=== PATIENT | female | born 1940 | race Caucasian/White ===

== ENCOUNTER 2018-02-15 00:35 | Inpatient (IN) | payer BC ==
[2018-02-15 01:35] VITALS: BP 129/82
[2018-02-15] MEDS ORDERED: Albuterol/Ipratropium Neb 3 ML AERS HHN PRN (02:48)
[2018-02-15] MEDS ORDERED: Maalox 30 mL Cup PO PRN (02:48)
[2018-02-15] MEDS: Lactobacillus Rhamnosus GG 15 Billion CFU CAP.SPRINK PO SCH ×2 (08:56→17:34)
[2018-02-15] MEDS: Aspirin 81mg Chewable Tab PO SCH (08:56)
[2018-02-15] MEDS: OLANZapine 5 mg Oral Disintegrating Tab PO SCH ×2 (08:56→17:36)
[2018-02-15] MEDS: Atorvastatin Calcium 10 MG TAB PO SCH (08:57)
--- NOTE | 2018-02-15 16:39 | History & Physical ---
ADMIT DATE: 02/15/2018 INTERNAL MEDICINE CONSULTATION HISTORY OF PRESENT ILLNESS: The patient is a 77-year-old female, past medical history significant for hypertension, COPD, hyperlipidemia, peptic ulcer disease, gastritis, arthritis, coronary artery disease, paroxysmal atrial fibrillation, congestive heart failure, and history of carcinoma of breast. SOCIAL HISTORY: No history of smoking, alcohol abuse. FAMILY HISTORY: Not available. OBSTETRIC HISTORY: P2 +0, menses are postmenopausal. REVIEW OF SYSTEMS: The patient is a poor historian due to advanced dementia. No chest pain, occasional cough. No significant shortness of breath, no nausea, no vomiting. The patient has resting tremors. PHYSICAL EXAMINATION: GENERAL: Average female, in no obvious respiratory distress. VITAL SIGNS: Include a blood pressure 140/80, heart rate 80, respiration rate of 18. SKIN: Show no obvious cellulitis. HEENT: Normal conjunctivae. NECK: Supple. LUNGS: Show occasional rhonchi, occasional crepitation, no bronchial breathing. HEART: First present. ABDOMEN: Soft, bowel sounds present. EXTREMITIES: Show arthritis. NEUROLOGIC: The patient has resting tremor and advanced dementia. ADMITTING DIAGNOSES: Include congestive heart failure., chronic obstructive pulmonary disease, hypertension, paroxysmal atrial fibrillation, hyperlipidemia, peptic ulcer disease, gastritis, arthritis, osteoporosis, and history of carcinoma of breast. CURRENT MEDICATIONS: Include Maalox, DuoNeb, baby aspirin, Lipitor, Catapres, Pepcid, Apresoline, and Lopressor. Rest of medicine as per psychiatrist. JOB# [id number]
[2018-02-15] MEDS ORDERED: OLANZapine 5 mg Oral Disintegrating Tab PO SCH (21:00)
--- NOTE | 2018-02-16 04:05 | Psychosocial Evaluation ---
DATE OF SERVICE: 02/15/2018 IDENTIFYING DATA: The patient is a 77-year-old woman admitted on a 5150 from [facility] for being gravely disabled. CHIEF COMPLAINT: "I do not know." HISTORY OF PRESENT ILLNESS: This is the first psychiatric hospitalization to [facility] for this patient who has been diagnosed to have schizophrenia, chronic paranoid type and is reported to be noncompliant with the medication and has been screaming and yelling and responding to the internal stimuli. The patient was taken to the [facility] after having a stroke and the patient has not been able to care for self and the patient has been referred over here for further care after she was medically cleared over there. At the time of the hospitalization, the patient is reported to have been on lithium as well as the Zyprexa and at this time the patient is very groggy and is not able to provide the information. PAST PSYCHIATRIC HISTORY: Details are not known, but long history of mental illness. PHYSICAL EXAMINATION: Requested to be done by Dr. Harvey. SUBSTANCE ABUSE HISTORY: None. PHYSICAL OR SEXUAL ABUSE HISTORY: None. LEGAL PROBLEMS: None at this time. STRENGTH AND ASSETS: The patient is a 77-year-old woman, moderately obese, superficially cooperative. Eye contact is poor. Mood is noted to be irritable. Affect is constricted. The patient is reported to have been screaming and yelling and has been having difficult time to cope with the stress. The patient at this time is not providing much of information, but is reported to have been out of control and hence has been referred over here for stabilization. The patient has a short as well as long-term memory deficits, but the patient is alert and awake. The patient is not able to recall the three digits that are told to her after 5 minutes. DIAGNOSTIC IMPRESSION: AXIS I: Schizophrenia, chronic paranoid type; rule out schizoaffective disorder. AXIS II: None. AXIS III: As per Dr. Harvey. IMMEDIATE TREATMENT PLAN: The patient is going to be observed on inpatient unit, provided with supportive psychotherapy. The patient is going to be closely monitored. Once stabilized, the patient is going to be discharged to [facility] to be followed up on an outpatient basis. JOB# [id number]
[2018-02-16] MEDS: Atorvastatin Calcium 10 MG TAB PO SCH (08:25)
[2018-02-16] MEDS: Aspirin 81mg Chewable Tab PO SCH (08:25)
[2018-02-16] MEDS: Lactobacillus Rhamnosus GG 15 Billion CFU CAP.SPRINK PO SCH ×2 (08:25→16:17)
--- NOTE | 2018-02-16 17:13 | Progress Notes ---
DATE: 02/16/2018 SUBJECTIVE: Staff was spoken to. The patient is interviewed. Mood is noted to be irritable. Affect is constricted. Insight and judgment at this time are noted to be still impaired. Impulse control is noted to be poor. The patient is currently on 15 mg of the olanzapine and has been able to tolerate the medication. The patient is also on the lithium 300 mg twice a day. The patient continues to be very drowsy and has been sleeping most of the time in the GD chair and hence I have decided to decrease the dose on the Zyprexa to 10 mg at bedtime and continue the lithium and follow the patient up with the supportive therapy. The patient at this time has not been able to be discharged to be lower level of care in view of her psychosis and impulsivity. PLAN: To closely monitor the patient for any side effects and follow the patient. JOB# [id number]
[2018-02-16] MEDS: OLANZapine 5 mg Oral Disintegrating Tab PO SCH (21:24)
[2018-02-17] MEDS: Aspirin 81mg Chewable Tab PO SCH (09:10)
[2018-02-17] MEDS: Atorvastatin Calcium 10 MG TAB PO SCH (09:11)
[2018-02-17] MEDS: Lactobacillus Rhamnosus GG 15 Billion CFU CAP.SPRINK PO SCH ×2 (09:11→17:12)
[2018-02-17] MEDS: cloNIDine 0.2 mg/24 hr Tdm TD SCH (10:05)
[2018-02-17] MEDS: OLANZapine 5 mg Oral Disintegrating Tab PO SCH (20:31)
--- NOTE | 2018-02-18 03:03 | Progress Notes ---
DATE: 02/17/2018 SUBJECTIVE: Staff was spoken to. The patient is interviewed. Mood is noted to be irritable. Affect is constricted. The patient has paranoid delusions. The patient is currently on the Zyprexa and has been able to tolerate the medications. No side effects to the medications are noted. ASSESSMENT AND PLAN: The patient has been compliant with the medication because the patient has been too drowsy. The dose of the Zyprexa is gradually decreased at this time. The patient is currently on olanzapine 10 mg at bedtime and lithium 300 mg twice a day. Aggressive behavior is being monitored. JOB# [id number]
[2018-02-18] MEDS ORDERED: OLANZapine 5 mg Oral Disintegrating Tab PO SCH ×2 (10:03→21:00)
[2018-02-18] MEDS: Atorvastatin Calcium 10 MG TAB PO SCH (11:02)
[2018-02-18] MEDS: Aspirin 81mg Chewable Tab PO SCH (11:02)
[2018-02-18] MEDS: Lactobacillus Rhamnosus GG 15 Billion CFU CAP.SPRINK PO SCH ×2 (11:02→17:02)
--- NOTE | 2018-02-18 16:22 | Progress Notes ---
DATE: 02/18/2018 SUBJECTIVE: Staff was spoken to. The patient is interviewed. Mood is noted to be irritable. Affect is constricted. The patient is drowsy this morning. The patient was initially on a very high dose of the Zyprexa. I am slowly cutting the medication down. Currently, the patient is on 10 mg, I am planning to bring it down to 5 mg. The patient is very irritable and angry and agitated behavior is a major concern. Plan to continue patient with the supportive therapy. I encouraged the patient to verbalize the concerns rather than to act out. ASSESSMENT AND PLAN: The patient is going to be closely monitored. I encouraged to participate in the groups and verbalize the concerns rather than to act out. JOB# [id number]
--- NOTE | 2018-02-19 01:51 | Consultation ---
DATE OF CONSULTATION: 02/17/2018 REFERRING PHYSICIAN: Geo Sky M.D. TYPE OF CONSULTATION: Psychology. HISTORY OF PRESENT ILLNESS: The patient is a 77-year-old female, who is being admitted on 5150 hold from [facility]. The following is by review of the medical record and by patient self report. Upon interview, the patient does not know why she is in the hospital. The patient has a history of schizophrenia, chronic paranoid type. Staff at her facility states and reports that she had been screaming and yelling and responding to internal stimuli. Record review from [facility] indicates that the patient had been noncompliant with the medication and has been referred here for stabilization. This patient was medically cleared at [facility]. The patient denied any suicidal ideation, plan or intention at the time of this clinical interview. PAST MEDICAL HISTORY: Please see history and physical by Dr. Harvey. PAST PSYCHIATRIC HISTORY: The patient has a long history of mental illness. There is indication in the record that she has a history of schizophrenia. Details are unknown to this check writer at the time of the clinical interview and are unavailable. SUBSTANCE ABUSE HISTORY: None reported. PSYCHOSOCIAL HISTORY: The patient did not answer these questions regarding occupational or educational history or moravian affiliation. The patient did not answer questions about physical or sexual abuse or legal issues. The patient did not answer questions about family history or family relationships with respect to support and caregiving. MENTAL STATUS EXAMINATION: The patient appears to be her stated age. The patient's attitude is superficially cooperative. Eye contact is poor. Speech is loud. The patient is yelling and having difficulty responding to the clinical questions. Mood is irritable and angry. Affect is constricted. The patient is not providing much information due to her selective response to the clinical questions. The patient did not answer questions about suicidal ideation, plan or intention. The patient did not answer questions about auditory or visual hallucinations or delusions. The patient did not participate in the memory evaluation. Impulse control is inadequate. The patient is alert and oriented to self only. The patient did not participate in the interpretation of proverbs. Insight is impaired. Judgment is impaired. DIAGNOSTIC IMPRESSION: AXIS I: 1. History of schizophrenia, chronic paranoid type. 2. Rule out schizoaffective disorder. 3. Provisional diagnosis of dementia with behavioral disturbance. AXIS II: Deferred. AXIS III: As per Dr. Harvey. PLAN: The patient has been seen by Dr. Sky for psychiatric evaluation and for the management of the patient's psychotropic medications. We will provide supportive psychotherapy. We will provide reality testing, reality orientation, reality differentiation and reality integration. We will provide coping strategies for phase of life issues as well as for chronic severe mental illness. We will provide a simple de-escalation skill for the patient to verbalize her concerns versus acting out. We will provide motivational enhancement for the patient to become compliant and stay compliant with her medication and with all other aspects of her care and treatment plan. Thank you, Dr. Sky for this consult and the opportunity to participate with you in this patient's care. JOB# [id number] [email or web address]
[2018-02-19] MEDS: Aspirin 81mg Chewable Tab PO SCH (10:28)
[2018-02-19] MEDS: Lactobacillus Rhamnosus GG 15 Billion CFU CAP.SPRINK PO SCH ×2 (10:29→16:34)
[2018-02-19] MEDS: Atorvastatin Calcium 10 MG TAB PO SCH (10:29)
[2018-02-19] MEDS ORDERED: OLANZapine 10 mg Oral Disintegrating Tab PO SCH (17:00)
--- NOTE | 2018-02-20 01:15 | Progress Notes ---
DATE: 02/19/2018 PSYCHIATRIC PROGRESS NOTE SUBJECTIVE: Staff was spoken to. The patient is interviewed. Mood is noted to be irritable. Affect is constricted. Insight and judgment are noted to be still impaired. Impulse control seems to be limited. The patient has been very groggy, is screaming and yelling. The patient's Zyprexa has been brought down all the way to 5 mg at bedtime, but still the patient is having difficult time to cope with the stress. No side effects to the medications are noted at this time and it is decided to change the dose on the Zyprexa to 2.5 mg twice a day and follow the patient with supportive therapy. The patient continues to be paranoid and confused, not making much sense, and is not ready to be discharged to a lower level of care yet. JOB# [id number]
[2018-02-20] MEDS: Aspirin 81mg Chewable Tab PO SCH (17:03)
[2018-02-20] MEDS: Atorvastatin Calcium 10 MG TAB PO SCH (17:03)
[2018-02-20] MEDS: Lactobacillus Rhamnosus GG 15 Billion CFU CAP.SPRINK PO SCH (17:04)
[2018-02-21] MEDS: Lactobacillus Rhamnosus GG 15 Billion CFU CAP.SPRINK PO SCH ×2 (08:59→19:04)
[2018-02-21] MEDS: Aspirin 81mg Chewable Tab PO SCH (08:59)
[2018-02-21] MEDS: Atorvastatin Calcium 10 MG TAB PO SCH (08:59)
--- NOTE | 2018-02-21 15:05 | Progress Notes ---
DATE: 02/20/2018 SUBJECTIVE: Staff was spoken to. The patient is interviewed. Mood is noted to be irritable. Affect is constricted. The patient has been on a high dose of olanzapine at the time of the admission and has been slowly cut down. The patient's coping skills at this time are noted to be poor. The patient has been still very drowsy and olanzapine is being decreased to 2.5 mg at this time. No side effects to the medications are noted. ASSESSMENT: The patient is still psychotic, screaming and yelling. PLAN: To continue the patient with the current medications and follow. JOB# [id number]
--- NOTE | 2018-02-22 04:30 | Progress Notes ---
DATE: 02/21/2018 SUBJECTIVE: Staff was spoken to. The patient is interviewed. Mood is noted to be irritable. Affect is constricted. Coping skills at this time are noted to be poor. The patient is screaming and yelling at the top of her lungs. The family has been visiting the patient. She has been doing pretty well, but now she is screaming and yelling. No side effects to the medications are noticed at this time. The patient is currently on 2.5 mg of Zyprexa and is able to tolerate the medication. ASSESSMENT: The patient is still psychotic and agitated. PLAN: To continue the patient with the current medications and follow up. [facility]# [id number]
[2018-02-22] MEDS: Atorvastatin Calcium 10 MG TAB PO SCH ×2 (08:37→09:00)
[2018-02-22] MEDS: Lactobacillus Rhamnosus GG 15 Billion CFU CAP.SPRINK PO SCH ×3 (08:38→17:06)
[2018-02-22] MEDS: Aspirin 81mg Chewable Tab PO SCH ×2 (08:38→09:00)
--- NOTE | 2018-02-23 03:02 | Progress Notes ---
DATE: 02/22/2018 SUBJECTIVE: Staff was spoken to. The patient is interviewed. Mood is noted to be irritable. Affect is constricted. The patient is screaming and yelling at this time. The patient's family has been met yesterday, they want the patient to go to a [facility]iary facility for the rehab. The patient has paranoia, but the patient's verbalizations are getting a little bit better compared to the time that she came in. No aggressive behavior is reported today. ASSESSMENT: The patient's psychosis is resolving. PLAN: To continue the patient with the current medications and follow up. JOB# [id number]
[2018-02-23] MEDS: Lactobacillus Rhamnosus GG 15 Billion CFU CAP.SPRINK PO SCH ×2 (08:47→18:22)
[2018-02-23] MEDS: Aspirin 81mg Chewable Tab PO SCH (08:47)
[2018-02-23] MEDS: Atorvastatin Calcium 10 MG TAB PO SCH (08:47)
--- NOTE | 2018-02-24 02:55 | Progress Notes ---
DATE: 02/23/2018 SUBJECTIVE: Staff was spoken to. The patient is interviewed. Mood is noted to be less irritable. The patient had to be given a dose of Zyprexa medication this morning because of her agitated behavior. No side effects to the medications are noted. The patient at this time is sleeping and the patient has a problem with speech and that is what making her to be frustrated when she has to explain. ASSESSMENT: The patient is still paranoid. PLAN: To continue the patient with the supportive therapy. I encouraged the patient to verbalize the concerns rather than to act out. JOB# [id number]
[2018-02-24] MEDS: Atorvastatin Calcium 10 MG TAB PO SCH (09:03)
[2018-02-24] MEDS: Aspirin 81mg Chewable Tab PO SCH (09:03)
[2018-02-24] MEDS: cloNIDine 0.2 mg/24 hr Tdm TD SCH (09:03)
[2018-02-24] MEDS: Lactobacillus Rhamnosus GG 15 Billion CFU CAP.SPRINK PO SCH ×2 (09:04→17:29)
--- NOTE | 2018-02-25 00:32 | Progress Notes ---
DATE: 02/24/2018 TIME PATIENT SEEN: Staff was spoken to. The patient is interviewed. Mood is noted to be irritable. Affect is constricted. The patient is still screaming and yelling, but the aggressive behavior seems to be coming under control. She is currently on a low dose of the Zyprexa and has been able to tolerate the medication. No side effects to the Zyprexa are noted at this time. ASSESSMENT: The patient is still paranoid, but the aggressive behavior is coming under control. PLAN: To continue the patient with the supportive therapy and follow up. JOB# [id number]
[2018-02-25] MEDS: Lactobacillus Rhamnosus GG 15 Billion CFU CAP.SPRINK PO SCH ×4 (09:34→17:47)
[2018-02-25] MEDS: Atorvastatin Calcium 10 MG TAB PO SCH ×2 (09:34→09:54)
[2018-02-25] MEDS: Aspirin 81mg Chewable Tab PO SCH ×2 (09:38→09:54)
--- NOTE | 2018-02-25 18:46 | Progress Notes ---
DATE: 02/25/2018 SUBJECTIVE: Staff was spoken to. The patient is interviewed. Mood is noted to be depressed today. Affect is constricted. The patient is drowsy. The patient's blood pressure has been checked and it is coming at 138/89 and a blood pressure medication has been held. No side effects to the medications are noted. The patient is reported to have been wanting to go to the bathroom a little bit more and the patient is reported to have a rash in the genital area. ASSESSMENT: The patient is still paranoid and demented. PLAN: To continue the patient with the supportive therapy and encouraged the patient to verbalized the concerns . JOB# [id number]
[2018-02-26] MEDS: Aspirin 81mg Chewable Tab PO SCH (12:42)
[2018-02-26] MEDS: Lactobacillus Rhamnosus GG 15 Billion CFU CAP.SPRINK PO SCH (12:42)
[2018-02-26] MEDS: Atorvastatin Calcium 10 MG TAB PO SCH (12:42)
[2018-02-26 14:47] LABS: % EOSINOPHILS 4.2 % (0.0-5.0); % LYMPHOCYTES 6.9 % (20.0-50.0); % MONOCYTES 4.9 % (2.0-10.0); EOSINOPHILE ABSOLUTE 0.4 Th/cmm (0.1-0.4); HEMATOCRIT 43.1 % (41.0-60); HEMOGLOBIN 14.7 gm/dL (12-16); LYMPHOCYTE ABSOLUTE 0.7 Th/cmm (1.5-3.0); MEAN CELL VOLUME 90.5 fl (81-100); MEAN CORPUSCULAR HEMOGLOBIN 30.9 pg (27.0-31.0); MEAN CORPUSCULAR HGB CONC 34.1 pg (28.0-36.0); MEAN PLATELET VOLUME 8.3 fl; MONOCYTE ABSOLUTE 0.5 Th/cmm (0.3-1.0); NEUTROPHILE ABSOLUTE 8.4 Th/cmm (1.8-8.0); PLATELET COUNT 349 Th/cmm (150-400); RED BLOOD COUNT 4.77 Mil/cmm (3.80-5.20); RED CELL DISTRIBUTION WIDTH 13.9 % (11.5-20.0)
--- NOTE | 2018-02-26 22:07 | Progress Notes ---
DATE: 02/26/2018 PSYCHIATRIC PROGRESS NOTE SUBJECTIVE: Staff was spoken to. The patient is interviewed. Mood is noted to be irritable. Affect is constricted. Insight and judgment are noted to be still impaired. Impulse control is noted to be limited. The patient has paranoia, but denies any command hallucinations. The patient is still confused. The patient has been drowsy this morning and hence the medication was kept on hold. The patient is only on 2.5 mg of the Zyprexa. The patient is poorly motivated. The patient's family is very much involved and they are trying to look for place that is willing to take the patient for rehabilitation. JOB# [id number]
[2018-02-27] MEDS ORDERED: cloNIDine 0.2 mg/24 hr Tdm TD SCH ×2 (06:45→10:00)
[2018-02-27] MEDS: Lactobacillus Rhamnosus GG 15 Billion CFU CAP.SPRINK PO SCH ×2 (12:44→17:00)
[2018-02-27] MEDS: Aspirin 81mg Chewable Tab PO SCH (12:45)
[2018-02-27] MEDS: Atorvastatin Calcium 10 MG TAB PO SCH (12:45)
--- NOTE | 2018-02-28 05:59 | Progress Notes ---
DATE: 02/27/2018 SUBJECTIVE: Staff was spoken to. The patient is interviewed. Mood is noted to be less irritable. Affect is constricted. The patient is isolative and withdrawn today. The patient has not been screaming and yelling, but the patient has poor short-term as well as long-term memory deficits. No major behavioral problems are noted. The patient is looking for placement in a place where she can get some physical rehabilitation. ASSESSMENT: The patient is stabilizing. PLAN: Continue the patient with the supportive therapy and await for placement. JOB# [id number]
[2018-02-28] MEDS: Atorvastatin Calcium 10 MG TAB PO SCH (09:51)
[2018-02-28] MEDS: Aspirin 81mg Chewable Tab PO SCH (09:51)
[2018-02-28] MEDS: Lactobacillus Rhamnosus GG 15 Billion CFU CAP.SPRINK PO SCH (09:51)
[2018-02-28 10:57] LABS: URINE MICROSCOPIC INDICATED? YES; URINE SOURCE MIDSTREAM
[2018-02-28 11:16] LABS: URINE BILIRUBIN SMALL (NEGATIVE); URINE BLOOD TRACE (NEGATIVE); URINE GLUCOSE (UA) NEGATIVE (NEGATIVE); URINE KETONE TRACE mg/dL (NEGATIVE); URINE LEUKOCYTE ESTERASE MODERATE (NEGATIVE); URINE NITRATE NEGATIVE (NEGATIVE); URINE PROTEIN TRACE mg/dL (NEGATIVE)
[2018-02-28 11:20] LABS: URINE CLARITY HAZY (CLEAR); URINE COLOR YELLOW
[2018-02-28 11:31] LABS: URINE BACTERIA MODERATE /hpf (NONE SEEN); URINE EPITHELIAL CELLS MODERATE /lpf (FEW); URINE YEAST FEW /hpf (NONE SEEN)
--- NOTE | 2018-02-28 18:54 | Progress Notes ---
DATE: 02/28/2018 SUBJECTIVE: Staff was spoken to. The patient is interviewed. Mood is noted to be less irritable. Affect is appropriate. The patient is able to verbalize the concerns. Insight and judgment at this time are noted to be improving. Impulse control seems to be fair. No side effects to the medications are noted. The patient's coping skills are noted to be improving. The patient has been able to verbalize the concerns rather than to act out. No side effects to the medications are noted at this time as the patient is awaiting placement at this time and no major behavioral problems are noted. ASSESSMENT: The patient is stabilizing and awaiting placement. PLAN: To continue the patient with the supportive therapy and followup. [facility]# [id number]
[2018-03-01] MEDS: Aspirin 81mg Chewable Tab PO SCH (09:52)
[2018-03-01] MEDS: Atorvastatin Calcium 10 MG TAB PO SCH (09:52)
[2018-03-01] MEDS: Lactobacillus Rhamnosus GG 15 Billion CFU CAP.SPRINK PO SCH ×2 (09:53→17:18)
--- NOTE | 2018-03-02 01:09 | Progress Notes ---
DATE: 03/01/2018 SUBJECTIVE: Staff was spoken to. The patient is interviewed. Mood is noted to be anxious. Affect is appropriate. The patient's insight and judgment are improving. Impulse control seemed to be fair. Coping skills are also noted to be fair. No side effects to the medications are noted. The patient has been able to verbalize the concerns rather than to act out. The patient at this time is awaiting placement. ASSESSMENT: The patient is stabilizing. PLAN: To continue the patient with the supportive therapy and I encourage the patient to verbalize the concerns. The patient is only on 2.5 mg of the Zyprexa and has been able to tolerate the medication. JOB# [id number]
[2018-03-02] MEDS: Aspirin 81mg Chewable Tab PO SCH (08:48)
[2018-03-02] MEDS: Lactobacillus Rhamnosus GG 15 Billion CFU CAP.SPRINK PO SCH ×2 (08:48→17:39)
[2018-03-02] MEDS: Atorvastatin Calcium 10 MG TAB PO SCH (08:49)
--- NOTE | 2018-03-03 05:08 | Progress Notes ---
DATE: 03/02/2018 SUBJECTIVE: Staff was spoken to. The patient is interviewed. Mood is noted to be less irritable. Affect is appropriate. The patient's insight and judgment are noted to be improving. Impulse control seems to be fair. The patient denies any auditory hallucinations, but the patient has paranoia, no command hallucinations are noted today. No visual hallucinations are reported. The patient is complying with the treatment and waiting for placement. ASSESSMENT: The patient is stabilizing. PLAN: To continue the patient with the supportive therapy and await for placement. JOB# [id number]
[2018-03-03] MEDS: Atorvastatin Calcium 10 MG TAB PO SCH ×2 (09:37→09:48)
[2018-03-03] MEDS: Lactobacillus Rhamnosus GG 15 Billion CFU CAP.SPRINK PO SCH ×2 (09:37→09:48)
[2018-03-03] MEDS: Aspirin 81mg Chewable Tab PO SCH ×2 (09:37→09:48)
--- NOTE | 2018-03-03 22:26 | Discharge Summary ---
DATE OF DISCHARGE: 03/03/2018 IDENTIFYING DATA: The patient is a 77-year-old woman admitted on a 5150 from [facility] for being gravely disabled. CHIEF COMPLAINT: "I do not know." DIAGNOSES AT THE TIME OF ADMISSION: AXIS I: Schizophrenia, chronic paranoid type or schizoaffective disorder. AXIS II: None. AXIS III: As per Dr. Harvey. HISTORY OF PRESENT ILLNESS: Please refer to the 02/15/2018 dictation on me. Physical examination at the time was done by Dr. Harvey and is noted to be significant for hypertension, COPD, hyperlipidemia, peptic ulcer disease, arthritis, coronary artery disease, history of carcinoma of the breast, and recent CVA. HOSPITAL COURSE AND RESPONSE TO TREATMENT: The patient has been observed on inpatient unit, provided with supportive psychotherapy. The patient has been closely monitored. The patient was initially in a very high dose of the Zyprexa and it has been gradually decreased and the patient has been finally placed on 2.5 mg of the Zyprexa at night time. In view of her memory problems, the patient has been placed on the Namenda and Aricept. For mood swings, lithium has been given in the beginning and it was given at 300 mg twice a day. With these medications, the patient was observed and was noted to be doing fairly well. The impulse control came under control and the patient was finally discharged with recommendation that she is going to be seeking treatment on an outpatient basis. MENTAL STATUS EXAMINATION: At the time of discharge, the patient's mood is noted to be less irritable. Affect is appropriate. Insight and judgment are noted to be improving. Impulse control seems to be fair. The patient has short-term memory deficits. Long-term memory also noted to be fair at times, but the patient's screaming and yelling has come down and the patient has been able to verbalize the concerns. Family is more interested in the physical therapy of the patient was finally discharged. CONDITION: At the time of discharge is noted to be stable. DIAGNOSES AT THE TIME OF DISCHARGE: AXIS I: Psychosis, not otherwise specified. AXIS II: None. AXIS III: Hypertension, chronic obstructive pulmonary disease, hyperlipidemia, and history of cerebrovascular accident.. AFTERCARE PLAN: The patient is discharged to [facility] to be followed up on an outpatient basis. PROGNOSIS: At the time of the discharge is noted to be guarded. JOB# [id number]
== END 2018-03-03 15:45 | DRG 885 ==
LOC: GERO2 00:35
PROVIDERS: ADMIT Psychiatry & Neurology Psychiatry; ATTEND Psychiatry & Neurology Psychiatry
DX: F20.0 Paranoid schizophrenia (principal); I11.0 Hypertensive heart disease with heart failure; F03.91 Unspecified dementia, unspecified severity, with behavioral disturbance; I50.9 Heart failure, unspecified; J44.9 Chronic obstructive pulmonary disease, unspecified; I48.0 Paroxysmal atrial fibrillation; E78.5 Hyperlipidemia, unspecified; K27.9 Peptic ulcer, site unspecified, unspecified as acute or chronic, without hemorrhage or perforation; M19.90 Unspecified osteoarthritis, unspecified site; M81.0 Age-related osteoporosis without current pathological fracture; Z85.3 Personal history of malignant neoplasm of breast; Z88.6 Allergy status to analgesic agent; I25.10 Atherosclerotic heart disease of native coronary artery without angina pectoris; Z86.73 Personal history of transient ischemic attack (TIA), and cerebral infarction without residual deficits; F29 Unspecified psychosis not due to a substance or known physiological condition
CPT/HCPCS: 36415-UA; 81001-TC; 85007-TC; 85025-TC; 85027-TC; 87086-90; 94760; 97530; X3904; Z7610